=== PATIENT | female | born 1985 | race Caucasian/White ===

== ENCOUNTER 2018-10-02 23:39 | Inpatient (IN) | payer MEDICAID, OTHER ==
[~2018-10-02] VITALS: Ht 170.2 cm; Wt 77.1 kg
[2018-10-03] VITALS (7 sets, daily range): BP systolic 102–128; BP diastolic 62–77
[2018-10-03 01:33] LABS: BASOPHILS # (AUTO) 0.1 (0.0-0.1); BASOPHILS % 0.6 % (0.0-1.0); EOSINOPHILS # (AUTO) 0.3 (0.0-0.4); EOSINOPHILS % 3.5 % (0.0-6.0); HEMATOCRIT 36.3 % (34.2-44.1); HEMOGLOBIN 12.7 g/dL (12.0-16.0); LYMPHOCYTES # (AUTO) 1.6 (1.0-3.2); LYMPHOCYTES % 17.3 % (18.0-39.1); MEAN CORPUSCULAR HEMOGLOBIN 32.1 pg (28-32); MEAN CORPUSCULAR VOLUME 91.7 fL (81-99); MONOCYTES # (AUTO) 0.6 (0.2-0.8); MONOCYTES % 6.5 % (4.4-11.3); NEUTROPHILS # (AUTO) 6.5 (2.1-6.9); NEUTROPHILS % 71.9 % (38.7-80.0); PLATELET COUNT 341 x10e3/uL (140-360); RED BLOOD COUNT 3.96 x10e6/uL (3.6-5.1); RED CELL DISTRIBUTION WIDTH 12.3 % (11.7-14.4)
[2018-10-03 01:38] LABS: PREGNANCY TEST, URINE NEGATIVE (NEGATIVE)
[2018-10-03 01:39] LABS: AMPHETAMINES SCREEN,URINE POSITIVE (NEGATIVE); PHENCYCLIDINE SCREEN,URINE NEGATIVE (NEGATIVE)
[2018-10-03 01:40] LABS: BENZODIAZEPINES SCREEN,URINE POSITIVE (NEGATIVE)
[2018-10-03] MEDS ORDERED: AMPICILLIN SOD/SULBACTAM 3GM 100 ML IV STA (01:44)
[2018-10-03 01:58] LABS: ALANINE AMINOTRANSFERASE 160 IU/L (0-55); ALBUMIN 4.2 g/dL (3.5-5.0); ALBUMIN/GLOBULIN RATIO 1.3 (0.8-2.0); ALKALINE PHOSPHATASE 116 IU/L (40-150); ANION GAP 13.6 mmol/L (8-16); BLOOD UREA NITROGEN 6 mg/dL (7-26); BUN/CREATININE RATIO 8 (6-25); CALCIUM 9.7 mg/dL (8.4-10.2); CARBON DIOXIDE 29 mmol/L (22-29); CHLORIDE 101 mmol/L (98-107); CREATININE, SERUM 0.79 mg/dL (0.57-1.11); EST GLOMERULAR FILTRATION RATE > 60 ML/MIN (60-); GLUCOSE 85 mg/dL (74-118); POTASSIUM 3.6 mmol/L (3.5-5.1); SODIUM 140 mmol/L (136-145)
[2018-10-03] MEDS ORDERED: SODIUM CHLORIDE 0.9% 50ML 50 ML ONE (02:24)
[2018-10-03] MEDS ORDERED: IOPAMIDOL 370 MG/ML 200 ML INFUS..BTL INJ ONE (02:24)
[2018-10-03] MEDS ORDERED: KETOROLAC TROMETHAMINE 30 MG/ML VIAL IV STA (02:40)
--- NOTE | 2018-10-03 03:04 | Diagnostic Imaging Report ---
Examination: CT Face with Contrast History:Face swelling. Mouth pain. Comparison studies: None Technique: Axial images were obtained through the maxillofacial region. Coronal and sagittal reconstructions obtained from the axial data. Dose modulation, iterative reconstruction, and/or weight based adjustment of the mA/kV was utilized to reduce the radiation dose to as low as reasonably achievable. Intravenous contrast: 100mL Isovue 370 Findings: There is moderate left perimandibular swelling with involvement of the left masseter muscle. There is no fluid collection. Bones: No fracture. There is abscess of the posterior most left mandibular molar tooth. There is periapical lucency of the posterior most right mandibular molar tooth. Orbits: Globes: Intact Extra or intraconal abnormalities: None. Paranasal sinuses: Clear. IMPRESSION: Left lower facial cellulitis and myositis, likely odontogenic in origin. No abscess. Signed by: Dr. Lyndsay Moreno M.D. on 10/03/2018 3:01 AM
[2018-10-03] MEDS ORDERED: AMPICILLIN SOD/SULBACTAM 3GM 100 ML IV SCH (06:02)
--- OUTSIDE RECORDS SUMMARY | 2018-10-03 06:34 | XMS REPORT ---
Author Author [facility] Address Unknown Phone Unavailable Care Team Providers Care Fretted Instruments Inspector Name Role Phone Jose WELCH Unavailable Unavailable Problems This patient has no known problems. Allergies, Adverse Reactions, Alerts This patient has no known allergies or adverse reactions. Medications This patient has no known medications. Results Test Description Test Time Test Comments Text Results Atomic Results Result Comments CT MAX FAC/PARANASAL W 2018-10-03 02:49:[address] [address] Patient Name: SHORTY ROSENTHAL MR #: [id number] : 1985 Age/Sex: 33/F Req #: [id number] Adm Physician: Ordered by: IGNACIO WELCH MD Report #: [id number] Location: ER Room/Bed: Procedure: [id number] CT/CT MAX FAC/PARANASAL W Exam Date: Exam Time: REPORT STATUS: Signed Examination: CT Face with Contrast History:Face swelling. Mouth pain. Comparison studies: None Technique: Axial images were obtained through the maxillofacial region. Coronal and sagittal reconstructions obtained from the axial data. Dose modulation, iterative reconstruction, and/or weight based adjustment of the mA/kV was utilized to reduce the radiation dose to as low as reasonably achievable. Intravenous contrast: 100mL Isovue 370 Findings: There is moderate left perimandibular swelling with involvement of the left masseter muscle. There is no fluid collection. Bones: No fracture. There is abscess of the posterior most left mandibular molar tooth. There is periapical lucency of the posterior most right mandibular molar tooth. Orbits: Globes: Intact Extra or intraconal abnormalities: None. Paranasal sinuses: Clear. IMPRESSION: Left lower facial cellulitis and myositis, likely odontogenic in origin. No abscess. Signed by: Dr. Lyndsay Moreno M.D. on 9 3:01 AM Dictated By: LYNDSAY KEENAN MD 0 Transcribed By: DEMARIO on 10/03/18300 COPY TO: IGNACIO WELCH MD
[2018-10-03] MEDS ORDERED: MORPHINE SULFATE INJ 4 MG/ML INJ 1ML IV PRN (06:45)
[2018-10-03] MEDS ORDERED: ONDANSETRON HCL INJ 2MG/ML 2ML 2 MG/ML VIAL IV PRN (06:45)
--- NOTE | 2018-10-03 06:48 | NUR ---
received report from off going nurse. patient in room in bed, awake and alert. family at bedside. no s/s of acute distress. reports having discomfort to left side of face. bed down call light in reach.
--- NOTE | 2018-10-03 07:55 | NUR ---
RECEIVED PATIENT FROM ER TO ROOM 294 IN STABLE CONDITION AROUND 0724. ADMISSION HISTORY AND INITIAL PHYSICAL ASSESSMENT COMPLETED AND DOCUMENTED. PATIENT STATES PAIN IS 7/10 AND WAS MEDICATED WITH MORPHINE PRIOR TO TRANSFER. PATIENT ORIENTED TO ROOM AND POLICIES. CALL LIGHT WITHIN REACH. BED IN THE LOWEST POSITION.
[2018-10-03] MEDS ORDERED: SODIUM CHLORIDE 0.9% 250ML 250 ML ONE ×2 (08:45→23:31)
[2018-10-03] MEDS: KETOROLAC TROMETHAMINE 30 MG/ML VIAL IV PRN ×3 (09:05→21:01)
[2018-10-03] MEDS: AMPICILLIN SOD/SULBACTAM 3GM 100 ML IV SCH ×2 (09:40→15:05)
[2018-10-03] MEDS ORDERED: VANCOMYCIN HCL 1 GM in SODIUM CHLORIDE 0.9% 250ML 250 ML IV SCH (15:15)
[2018-10-03] MEDS: VANCOMYCIN 1GM/NS 250 ML 250 ML IV SCH (15:30)
[2018-10-03] MEDS: PIPER-TAZ 3.375 GM 50 ML IV SCH ×2 (17:11→23:46)
--- NOTE | 2018-10-03 19:11 | NUR ---
REPORT GIVEN TO ONCOMING NURSE. PATIENT IS RESTING IN BED. NO ACUTE DISTRESS NOTED. PAIN AT A TOLERABLE LEVEL AT THIS TIME. CALL LIGHT WITHIN REACH. BED IN THE LOWEST POSITION.
--- NOTE | 2018-10-03 19:24 | NUR ---
PT IS RESTING IN BED. RESPIRATION IS EVEN AND UNLABORED, NO DISTRESS NOTED. BED IN THE LOWEST POSITION, LOCKED, AND CALL LIGHT WITHIN REACH. WILL CONTINUE TO MONITOR.
[2018-10-03] MEDS ORDERED: HYDROMORPHONE 1MG/1ML INJ IV PRN (19:30)
[2018-10-03] MEDS ORDERED: HYDROMORPHONE 2MG/ML 2 MG/ML ML IV PRN (20:00)
--- NOTE | 2018-10-03 23:01 | Consultation ---
DATE OF CONSULTATION: REASON FOR CONSULTATION: Facial abscess. HISTORY OF PRESENT ILLNESS: This patient is a very pleasant 33-year-old white female, denies past medical history. She does have a problem with her tooth and she was going to see a dentist and she was planned to have tooth extraction on the left lower side, however, she still have redness and swelling. She took oral antibiotics and started getting better. She got worse with severe pain, redness and swelling on the jaw, so she came here. The patient is being admitted. The patient was asked to see the patient. PAST MEDICAL HISTORY: She denies. PAST SURGICAL HISTORY: She denies. ALLERGIES: NKA. SOCIAL HISTORY: She does smoke one pack a day. No drug abuse or alcohol abuse. FAMILY HISTORY: Noncontributory. REVIEW OF SYSTEMS: Besides the pain in the face, HEENT: There is no headache, visual changes or hearing changes. GI: There is no nausea, no vomiting, no diarrhea. CARDIAC: There is no arrhythmia. NEURO: No seizure activity. SKIN: There is no rash. The pain is on the left side of the face. PHYSICAL EXAMINATION: GENERAL: She is currently alert, oriented, does not seem to be in acute distress. VITAL SIGNS: Stable, currently afebrile. HEENT: Normocephalic, not icteric. She does have left side face swelling with edema and erythema. She does have poor oral hygiene. I can see a necrotic tooth at the base of the left side of the jaw. NECK: Supple. No JVD. No lymphadenopathy. No thyromegaly. CHEST: Clear bilateral. HEART: S1, S2. No S3, S4, or murmur. ABDOMEN: Soft. Bowel sounds present. No tenderness. EXTREMITIES: No edema. SKIN: No rash. LABORATORY DATA: The patient was admitted, a CAT scan showed left lower facial cellulitis, myositis. No abscess. Her white count 9.29, hemoglobin 12. Her sodium 140, potassium 3.6, creatinine 0.79. Liver enzyme, AST of 41, ALT 160. IMPRESSION: Facial cellulitis, no abscess and tooth infection. PLAN: We will put her on Zosyn and vancomycin since she failed antibiotic, local heat pad for pain control. Recheck CBC. Recheck Chem panel. We will observe the next few day. She is already having a plan for extraction of the tooth by her dentist and we will follow with you. MD RAYMOND Mayo/HUSSEIN /[id number]
[2018-10-04] VITALS (8 sets, daily range): BP systolic 102–120; BP diastolic 57–88
--- NOTE | 2018-10-04 02:02 | History and Physical ---
CHIEF COMPLAINT: Left facial swelling. HISTORY OF PRESENT ILLNESS: This is a 33-year-old female with no past medical history, comes into the ED with left facial swelling ongoing for the last 1 to 2 days. The patient reports that she has an extracted tooth, that needed to be addressed by the dentist, but instead she did not go and came into the hospital here to be further evaluated. She reports that the left face continued to get worse and swelling over the last 1 to 2 days. Denies any fever at home. She is able to swallow, does not have any airway compromise. Denies any shortness of breath. The patient was seen and evaluated at bedside on the medical floor. Currently, she is doing well with no other issues at this time. REVIEW OF SYSTEMS: Pertinent positive: Left facial swelling. Pertinent negative: Denies any chest pain, palpitation, nausea, vomiting, diarrhea, dysuria, hematuria, frequency, urgency, lightheadedness, dizziness, abdominal pain, headaches, shortness of breath, cough, congestion, fever, or any other complaints. The rest of 14-point review of systems have been reviewed with the patient and are negative. ALLERGIES: NO KNOWN DRUG ALLERGIES. HOME MEDICATIONS: None. PAST SURGICAL HISTORY: None. PAST MEDICAL HISTORY: None. PAST FAMILY HISTORY: Hypertension and diabetes. SOCIAL HISTORY: No drugs or alcohol. Does not smoke. Good social support. PHYSICAL EXAMINATION: VITAL SIGNS: Temperature is 97.7, pulse is 106, respiratory rate is 22, blood pressure 120/77, and pulse ox 100% on room air. GENERAL: Not in acute distress. Alert and oriented x3. Cooperative on examination. Left facial swelling seen. HEENT: Head is normocephalic and atraumatic. Eyes; pupils are equal, round, and reactive to light bilaterally. Extraocular movements intact bilaterally. Throat, no evidence of erythema or exudates in the posterior pharynx. Has poor dentition. NECK: Supple. Good range of motion. PULMONARY: Clear to auscultation bilaterally. No wheezing, no rales, no rhonchi, no crackles appreciated. CARDIOVASCULAR: Positive S1, S2. No murmurs, rubs, or gallops appreciated. ABDOMEN: Soft, nondistended, and nontender to palpation. Bowel sounds present. MUSCULOSKELETAL: Strength is 5/5 throughout. No evidence of any muscle deficits on examination. No weakness appreciated. NEUROLOGICAL: Cranial nerves II through XII grossly intact. No evidence of neurological deficits on exam. SKIN: Intact. Warm to touch. Good cap refill. PSYCHIATRIC: Normal affect and mood. EXTREMITIES: No edema. Good range of motion throughout. LAB FINDINGS: Show white count 9, hemoglobin 12.7, hematocrit 36 and platelets of 341. Chemistry; sodium 140, potassium 3.6, chloride 101, bicarb 29, anion gap of 13, BUN 6, creatinine is 0.79, calcium 9.7, glucose is 85, total bilirubin was 1.1, AST 41, ALT 160, total protein 7.4, albumin 4.2. Urine drug screen positive for opioids, positive for amphetamines, positive for methamphetamine, positive for benzodiazepines, though the patient denies drugs. Urine drug screen is positive. MICROBIOLOGY: None. IMAGING STUDIES: CT of the face shows left lower facial cellulitis with myositis, likely odontogenic in origin. No abscess seen. IMPRESSION: 1. Left facial swelling due to underlying extracted tooth, odontogenic. 2. Chronic pain. 3. Positive urine drug screen with history of drug abuse. PLAN: At this time, continue with IV antibiotics. Pain control. Toradol for anti-inflammatory. ID has been consulted. No home medications are available. Discussed with the patient the drug abuse. Lovenox for DVT prophylaxis. MD AZAEL Ferrara/MODL /[id number]
[2018-10-04] MEDS: VANCOMYCIN 1GM/NS 250 ML 250 ML IV SCH ×2 (03:34→15:05)
[2018-10-04] MEDS: KETOROLAC TROMETHAMINE 30 MG/ML VIAL IV PRN ×4 (03:40→22:28)
[2018-10-04] MEDS: PIPER-TAZ 3.375 GM 50 ML IV SCH ×3 (05:16→17:13)
--- NOTE | 2018-10-04 06:52 | NUR ---
RECEIVED PATIENT RESTING IN BED. NO ACUTE DISTRESS NOTED. PAIN AT A TOLERABLE LEVEL AT THIS TIME. CALL LIGHT WITHIN REACH. BED IN THE LOWEST POSITION.
[2018-10-04 07:39] LABS: BASOPHILS % 0.7 % (0.0-1.0); EOSINOPHILS # (AUTO) 0.4 (0.0-0.4); EOSINOPHILS % 6.4 % (0.0-6.0); HEMATOCRIT 35.1 % (34.2-44.1); LYMPHOCYTES # (AUTO) 1.3 (1.0-3.2); LYMPHOCYTES % 21.7 % (18.0-39.1); MEAN CORPUSCULAR HEMOGLOBIN 31.7 pg (28-32); MEAN CORPUSCULAR HGB CONC 34.2 g/dL (31-35); MEAN CORPUSCULAR VOLUME 92.6 fL (81-99); MONOCYTES # (AUTO) 0.3 (0.2-0.8); MONOCYTES % 5.7 % (4.4-11.3); NEUTROPHILS # (AUTO) 3.9 (2.1-6.9); NEUTROPHILS % 65.3 % (38.7-80.0); PLATELET COUNT 284 x10e3/uL (140-360); RED BLOOD COUNT 3.79 x10e6/uL (3.6-5.1)
[2018-10-04 07:57] LABS: ALANINE AMINOTRANSFERASE 82 IU/L (0-55); ALBUMIN 3.4 g/dL (3.5-5.0); ALKALINE PHOSPHATASE 99 IU/L (40-150); BLOOD UREA NITROGEN 6 mg/dL (7-26); BUN/CREATININE RATIO 9 (6-25); CALCIUM 9.4 mg/dL (8.4-10.2); CARBON DIOXIDE 29 mmol/L (22-29); CHLORIDE 103 mmol/L (98-107); CREATININE, SERUM 0.68 mg/dL (0.57-1.11); EST GLOMERULAR FILTRATION RATE > 60 ML/MIN (60-); GLUCOSE 81 mg/dL (74-118); SODIUM 139 mmol/L (136-145)
--- NOTE | 2018-10-04 13:36 | NUR ---
GAVE PACKET OF INFORMATION WITH COMM[employer]ITY [employer] FOR ASSISTANCE WITH LOW TO NO INCOME TO PATIENT. RESOURCES THAT PATIENT MAY BE ABLE TO FOLLOW UP UPON DISCHARGE. PT EDUCATED ON EACH RESOURCE AND UNDERSTANDING HOW TO FOLLOW UP TO SEE IF QUALIFIED FOR EACH RESOURCE.
--- NOTE | 2018-10-04 16:35 | Progress Note ---
DATE: 10/04/2018 Medicine Progress Note SUBJECTIVE: The patient reports doing much better today with no complaints. Several tests have been pending. She reports that she is very weak today and tired. PHYSICAL EXAMINATION: VITAL SIGNS: Temperature is 97.2, pulse 85, respiratory rate is 20, blood pressure 120/88, and pulse ox 100% on room air. GENERAL: Not in acute distress. Alert and oriented x3. Cooperative on examination. HEENT: Head is normocephalic and atraumatic. Eyes; pupils are equal, round, and reactive to light bilaterally. Extraocular movements intact bilaterally. Throat; no evidence of erythema or exudates in the posterior pharynx. Has poor dentition. NECK: Supple. Good range of motion throughout. PULMONARY: Clear to auscultation bilaterally. No wheezing, rales, or rhonchi. No crackles appreciated. CARDIOVASCULAR: Positive S1, S2. No murmurs, rubs, or gallops appreciated. ABDOMEN: Soft, nondistended, and nontender to palpation. Bowel sounds present. MUSCULOSKELETAL: Strength is 5/5 throughout. No evidence of any muscle deficits on examination. No weakness appreciated. NEUROLOGIC: Cranial nerves II through XII are grossly intact. No evidence of any neurological deficits on exam. SKIN: Intact. Warm to touch. Good cap refill. PSYCHIATRIC: Normal affect and mood. EXTREMITIES: No edema. Good range of motion throughout. LAB FINDINGS: White count 5.9, hemoglobin 12, hematocrit 35, platelets of 284. Chemistry; sodium 139, potassium 4, chloride 103, bicarb 29, anion gap of 11, BUN of 6, creatinine is 0.68, glucose 81, calcium 9.4. Total bilirubin is 2. AST 80, ALT is 82, alkaline phosphatase 99, total protein 6.7, albumin is 3.4. Urine test negative. Urine drug screen is positive for opiates, positive for amphetamines, positive for methamphetamine, positive for benzodiazepines. IMPRESSION: 1. Left facial swelling due to underlying extracted tooth, odontogenic. 2. Chronic pain. 3. Positive urine drug screen with history of drug abuse. PLAN: We will change the pain medications to IV Toradol for anti-inflammatory properties as well as pain control. Continue with IV antibiotics. ID is following closely as well. Discussed plan of care with the patient with nursing present. MD AZAEL Ferrara/HUSSEIN /[id number]
[2018-10-04] MEDS: ENOXAPARIN SOD INJ 40 MG/0.4 ML SYR SC SCH (16:44)
--- NOTE | 2018-10-04 19:08 | NUR ---
REPORT GIVEN TO ONCOMING NURSE, WALKING ROUNDS DONE. PATIENT IS RESTING IN BED. NO ACUTE DISTRESS NOTED. NO S/S OF PAIN NOTED AT THIS TIME. CALL LIGHT WITHIN REACH. BED IN THE LOWEST POSITION.
--- NOTE | 2018-10-04 20:11 | Progress Note ---
DATE: SUBJECTIVE: Ms. Hansen is feeling better. The swelling and redness in the face started to improve. REVIEW OF SYSTEMS: Otherwise, unremarkable. PHYSICAL EXAMINATION: GENERAL: She is currently alert, oriented, does not seem to be in acute distress. VITAL SIGNS: Stable, currently afebrile. HEENT: She is not icteric. The swelling on the face has subsided. The erythema subsided. HEENT is otherwise, normal. NECK: Supple. No JVD. No carotid. No thyromegaly. CHEST: Clear bilateral. HEART: S1, S2. No S3, S4, or murmur. ABDOMEN: Soft. Bowel sounds present. No tenderness. No hepatosplenomegaly. EXTREMITIES: No edema. SKIN: No rash. LABORATORY DATA: Reviewed. White count 5.9, hemoglobin of 12, and platelet 184. Sodium 139, potassium 4, chloride 103. IMPRESSION: 1. Left face cellulitis. 2. Poor dental hygiene. I have discussed with the patient, she is getting better, continue with IV antibiotic for now. The day or two, we will switch her to oral antibiotic. 3. Drug abuse. 4. Need tooth extraction. The patient is aware of that to make an appointment soon as possible. We will follow. MD RAYMOND Mayo/HUSSEIN /[id number]
[2018-10-05] VITALS (9 sets, daily range): BP systolic 110–183; BP diastolic 61–87
[2018-10-05] MEDS: PIPER-TAZ 3.375 GM 50 ML IV SCH ×5 (00:21→23:01)
[2018-10-05] MEDS: KETOROLAC TROMETHAMINE 30 MG/ML VIAL IV PRN ×4 (04:03→23:01)
[2018-10-05] MEDS: VANCOMYCIN 1GM/NS 250 ML 250 ML IV SCH ×2 (05:49→15:40)
--- NOTE | 2018-10-05 06:56 | NUR ---
RECEIVED PATIENT RESTING IN BED. NO ACUTE DISTRESS NOTED. PAIN AT A TOLERABLE LEVEL AT THIS TIME. CALL LIGHT WITHIN REACH. BED IN THE LOWEST POSITION.
[2018-10-05] MEDS: FLUCONAZOLE 100 MG TAB PO SCH (15:40)
--- NOTE | 2018-10-05 16:45 | Progress Note ---
DATE: 10/05/2018 Medicine Progress Note SUBJECTIVE: The patient is doing much better today with no other issues. Her left facial swelling has improved tremendously. PHYSICAL EXAMINATION: VITAL SIGNS: Temperature 97.3, pulse 80, respiratory rate is 18, blood pressure 116/74, and pulse ox 98% on room air. GENERAL: Not in acute distress. Alert and oriented x3. Cooperative on examination. HEENT: Head is normocephalic and atraumatic. Eyes; pupils are equal, round, and reactive to light bilaterally. Extraocular movements are intact bilaterally. Throat, no evidence of erythema or exudates in the posterior pharynx. Has poor dentition. NECK: Supple. Good range of motion. PULMONARY: Clear to auscultation bilaterally. No wheezing, no rales, no rhonchi, no crackles appreciated. CARDIOVASCULAR: Positive S1, S2. No murmurs, rubs, or gallops appreciated. ABDOMEN: Soft, nondistended, and nontender to palpation. Bowel sounds present. MUSCULOSKELETAL: Strength is 5/5 throughout. No evidence of any muscle deficits on examination. No weakness appreciated. NEUROLOGICAL: Cranial nerves 2 through 12 grossly intact. No evidence of any neurological deficits on exam. SKIN: Intact. Warm to touch. Good cap refill. PSYCHIATRIC: Normal affect and mood. EXTREMITIES: No edema. Good range of motion throughout. LABORATORY DATA: No labs were taken today. IMPRESSION: 1. Left facial swelling due to underlying extracted tooth, odontogenic. 2. Chronic pain. 3. Positive urine drug with history of drug abuse. PLAN: Continue with IV Toradol for anti-inflammatory properties as well as pain control. IV antibiotics. ID following closely. A.m. labs. Plan to discharge home tomorrow. MD AZAEL Ferrara/HUSSEIN /[id number]
[2018-10-05] MEDS: ENOXAPARIN SOD INJ 40 MG/0.4 ML SYR SC SCH (17:21)
--- NOTE | 2018-10-05 19:08 | NUR ---
REPORT GIVEN TO ONCOMING NURSE, WALKING ROUNDS DONE. PATIENT IS IN STABLE CONDITION. NO S/S OF PAIN NOTED AT THIS TIME. CALL LIGHT WITHIN REACH. BED IN THE LOWEST POSITION.
--- NOTE | 2018-10-05 21:30 | Progress Note ---
DATE: SUBJECTIVE: Ms. Hansen is feeling better. The swelling on the left side is improving. REVIEW OF SYSTEMS: HEENT: Negative. Pulmonary: Negative. CARDIAC: Negative. PHYSICAL EXAMINATION: GENERAL: She is currently alert, oriented, does not seem to be in acute distress. VITAL SIGNS: Stable, currently afebrile. HEENT: Normocephalic, not icteric. She does have some swelling and residual swelling noted on the left side of the jaw, but the erythema has subsided significantly and the swelling has subsided significantly. NECK: Supple. No JVD. No lymphadenopathy. No thyromegaly. CHEST: Clear bilateral. HEART: S1, S2. No S3, S4, or murmur. ABDOMEN: Soft. Bowel sounds present. No tenderness. EXTREMITIES: No edema. IMPRESSION: 1. Dental infection, dental caries, seems to be getting better. Can switch to clindamycin 300 mg p.o. t.i.d. tomorrow. Cipro 5 mg p.o. b.i.d. to be discharged home to follow up with ENT. She may need to see oral surgeon as outpatient. 2. Drug addiction. Her urine was positive for opiate, amphetamine, methamphetamine, and benzodiazepine. 3. We will follow. MD RAYMOND Mayo/HUSSEIN /[id number]
[2018-10-06 00:36] VITALS: BP 97/54
[2018-10-06] MEDS: VANCOMYCIN 1GM/NS 250 ML 250 ML IV SCH (03:25)
[2018-10-06] MEDS: KETOROLAC TROMETHAMINE 30 MG/ML VIAL IV PRN ×2 (04:31→11:15)
[2018-10-06] MEDS: PIPER-TAZ 3.375 GM 50 ML IV SCH ×2 (05:03→11:35)
[2018-10-06 05:29] VITALS: BP 108/60
[2018-10-06 06:03] LABS: BASOPHILS % 0.8 % (0.0-1.0); EOSINOPHILS # (AUTO) 0.6 (0.0-0.4); EOSINOPHILS % 11.5 % (0.0-6.0); HEMATOCRIT 32.5 % (34.2-44.1); HEMOGLOBIN 11.2 g/dL (12.0-16.0); LYMPHOCYTES % 21.7 % (18.0-39.1); MEAN CORPUSCULAR HEMOGLOBIN 31.8 pg (28-32); MEAN CORPUSCULAR HGB CONC 34.5 g/dL (31-35); MEAN CORPUSCULAR VOLUME 92.3 fL (81-99); MONOCYTES # (AUTO) 0.3 (0.2-0.8); MONOCYTES % 6.3 % (4.4-11.3); NEUTROPHILS # (AUTO) 2.9 (2.1-6.9); NEUTROPHILS % 59.5 % (38.7-80.0); PLATELET COUNT 279 x10e3/uL (140-360); RED BLOOD COUNT 3.52 x10e6/uL (3.6-5.1)
[2018-10-06 06:34] LABS: ANION GAP 11.2 mmol/L (8-16); BLOOD UREA NITROGEN 7 mg/dL (7-26); BUN/CREATININE RATIO 10 (6-25); CALCIUM 9.4 mg/dL (8.4-10.2); CARBON DIOXIDE 29 mmol/L (22-29); CHLORIDE 105 mmol/L (98-107); CREATININE, SERUM 0.67 mg/dL (0.57-1.11); EST GLOMERULAR FILTRATION RATE > 60 ML/MIN (60-); GLUCOSE 84 mg/dL (74-118); POTASSIUM 4.2 mmol/L (3.5-5.1); SODIUM 141 mmol/L (136-145)
--- NOTE | 2018-10-06 07:00 | NUR ---
Bedside rounding completed with the off-going nurse and the pt. c/o pain and was advised that she has recently been medicated and given the time for next available dose.
[2018-10-06 08:04] VITALS: BP 114/70
[2018-10-06] MEDS: FLUCONAZOLE 100 MG TAB PO SCH (09:12)
[2018-10-06] MEDS ORDERED: ONDANSETRON HCL 4 MG ORAL DISINTEGRATING TAB PO PRN (11:00)
--- NOTE | 2018-10-06 11:00 | NUR ---
Dr. Don visited and discharged the pt. She is advised of same and has a friend coming to visit and will ride home with the friend.
[2018-10-06 12:09] VITALS: BP 121/74
--- NOTE | 2018-10-06 12:09 | NUR ---
The p's iv is cdc'd and she is ready for discharge home
[2018-10-06 12:40] VITALS: BP 114/70
--- NOTE | 2018-10-06 12:42 | NUR ---
The pt. has been discharged home via w/c in stable condition and was provided prescriptions and follow up information. The pt. was advised to go to her dentist and to complete the full doses of the antibiotics.
--- NOTE | 2018-10-06 14:15 | Discharge Summary ---
FINAL DISCHARGE DIAGNOSES: 1. Left facial swelling with underlying cellulitis. 2. Chronic pain. 3. History of polysubstance abuse with positive urine drug screen. CONSULTANTS: Infectious Disease. PHYSICAL EXAMINATION: VITAL SIGNS: Temperature 97.4, pulse 80, respiratory rate is 20, blood pressure 114/70, pulse ox 98% on room air. LABORATORY DATA: Lab findings show white count was 4.7, hemoglobin 11.2, hematocrit 33, platelets of 279. Chemistry; sodium 141, potassium 4.3, chloride 105, bicarb 29, anion gap of 11, BUN 7, creatinine is 0.67, glucose 84, calcium 9.4. Total bilirubin is 2, AST 80, ALT 82, alkaline phosphatase 99, total protein 6.7, albumin 3.4. Urinalysis, urine screen negative. Urine drug screen positive for opioids, amphetamines, methamphetamines and benzodiazepine. MICROBIOLOGY: None. IMAGING STUDIES: CT of the face shows left lower facial cellulitis and myositis likely iatrogenic in origin. No abscess seen. HOSPITAL COURSE: This is a 33-year-old female, who came into the ED with complaints of a 7-day history of left facial swelling, redness and pain. The patient was admitted. ID was consulted. The patient was on broad-spectrum IV antibiotics while here in the hospital stay. She was also on anti-inflammatories with IV Toradol and pain control. The patient's left facial swelling and cellulitis improved tremendously with IV antibiotic therapy. The patient was then discharged on oral antibiotics per ID recommendations. She was advised to follow up with a dentist here in the next 1 to 2 days. The patient is currently doing well with no other complaints at this time. She has been cleared for discharge by ID standpoint as well. She will be discharged on oral antibiotics and Tylenol No.3 for pain control. On the day of discharge, vital signs were stable, labs were reviewed and stable. The patient was seen and evaluated, examined thoroughly on the day of discharge. No other complaints. The patient verbalized understanding and agreed to plan of care. Followup appointment as an outpatient with the primary care physician in 1 week and ID and dentist here in the next 1-2 days. MEDICATIONS: See med reconciliation form. DISPOSITION: Home. CONDITION: Stable. DIET: Heart healthy. In the event of any worsening symptoms, the patient was advised to come back to the ED for further evaluation. Discharge summary took greater than 35 minutes. MD AZAEL Ferrara/HUSSEIN /[id number]
== END 2018-10-06 12:48 | disposition home or self-care (01) | DRG 158 ==
LOC: ER 23:39 → ERHOLD 10-03 06:29 → MED/SURG3 10-03 07:30
PROVIDERS: ADMIT Internal Medicine; ATTEND Internal Medicine
DX: K04.7 Periapical abscess without sinus (principal); L03.211 Cellulitis of face; F15.20 Other stimulant dependence, uncomplicated; F17.210 Nicotine dependence, cigarettes, uncomplicated; G89.29 Other chronic pain; M60.9 Myositis, unspecified
CPT/HCPCS: 36415; 70487; 80048; 80053; 80202; 80307; 81025; 85025; 99284; J0295; J1650; J1885; J2270; J2405; J2543; J3370; J7050; Q9967

== ENCOUNTER 2020-05-24 08:21 | Emergency (ER) | payer SELFPAY ==
[~2020-05-24] VITALS: Ht 170.2 cm; Wt 77.1 kg
[2020-05-24] MEDS ORDERED: KETOROLAC TROMETHAMINE 30 MG/ML VIAL IV STA (08:43)
[2020-05-24] MEDS ORDERED: HYDROCODONE/APAP 7.5MG-325MG 1 EA TAB PO STA (09:47)
[2020-05-24] MEDS ORDERED: HYDROCODON-ACE1 EA15 PO (09:55)
[2020-05-24] MEDS ORDERED: TETANUS/DIPHTHERIA TOX ADULT 0.5 ML SYR IM ONE (10:00)
== END 2020-05-24 10:00 | disposition home or self-care (01) ==
LOC: ER 08:56
DX: S52.122A Displaced fracture of head of left radius, initial encounter for closed fracture (principal); W18.30XA Fall on same level, unspecified, initial encounter; E11.9 Type 2 diabetes mellitus without complications; M32.9 Systemic lupus erythematosus, unspecified; F31.89 Other bipolar disorder
CPT/HCPCS: 29125; 73080; 73090; 73110; 99284; J1885